=== PATIENT | male | born 1980 | race Caucasian/White ===

== ENCOUNTER 2020-04-25 00:24 | Emergency (ER) | payer SELFPAY ==
[2020-04-25] MEDS ORDERED: Diazepam 5 MG Tab PO ONE (01:08)
--- NOTE | 2020-04-25 01:47 | EDM.PDOC ---
ED HPI GENERAL MEDICAL PROBLEM - General Chief Complaint: Back Pain or Injury Stated Complaint: BACK PAIN Time Seen by Provider: 04/25/20 00:53 Source of Information: Reports: Patient History Limitations: Reports: No Limitations - History of Present Illness INITIAL COMMENTS - FREE TEXT/NARRATIVE: History of present illness: [Patient is 39-year-old male with a history of intermittent low back pain and sciatica who presents with suspected exacerbation of sciatica. He states that when he went to bed tonight he was feeling some left lower back pain radiating into his buttock. He took some ibuprofen at dinnertime. Denies any urinary or bowel incontinence. Denies IV drug use. Denies fever. Denies saddle anesthesia. Denies any chest pain or shortness of breath. No recent trauma falls or injuries. Denies any previous back surgeries. Certain positions seem to help alleviate the symptoms while others seem to exacerbate it. Patient is a hard time describing exactly what those positions are.] Review of systems: As per history of present illness and below otherwise all systems reviewed and negative. Past medical history: As per history of present illness and as reviewed below otherwise noncontributory. Surgical history: As per history of present illness and as reviewed below otherwise noncontributory. Social history: No reported history of drug or alcohol abuse. Family history: As per history of present illness and as reviewed below otherwise noncontributory. Physical exam: General: Awake, alert, mild distress, A&O X3. HEENT: Atraumatic, normocephalic, pupils reactive, negative for conjunctival pallor or scleral icterus, mucous membranes moist, throat clear, neck supple, nontender, trachea midline. Lungs: Clear to auscultation, breath sounds equal bilaterally, chest nontender. Heart: RRR, normal S1S2, no JVD. Abdomen: Soft, nondistended, nontender. Negative for masses or hepatosplenomegaly. Pelvis: Stable nontender. Genitourinary: Deferred. Rectal: Deferred. Back: Mild left lumbar paraspinal tenderness. No midline deformity or step- offs. Extremities: Atraumatic, no edema, Neurovascular unremarkable. Neuro: Motor and sensory grossly intact throughout. Exam nonfocal. Diagnostics: [] Therapeutics: [] Impression: [] Plan: [] Definitive disposition and diagnosis as appropriate pending reevaluation and review of above. left back Pain Score (Numeric/FACES): 10 - Related Data Allergies Allergy/AdvReac Type Severity Reaction Status Date / Time No Known Allergies Allergy Verified 04/25/20 00:55 Home Meds: Home Meds Pantoprazole [ProTONIX] 40 mg PO DAILY 04/25/20 [History] Sertraline [Zoloft] 50 mg PO DAILY 04/25/20 [History] Past Medical History Gastrointestinal History: Reports: GERD Other Endocrine/Metabolic History: low testosterone - Infectious Disease History Infectious Disease History: Reports: Chicken Pox Social & Family History - Family History Family Medical History: Noncontributory - Tobacco Use Smoking Status *Q: Current Every Day Smoker Years of Tobacco use: 2 Packs/Tins Daily: 1 ED ROS GENERAL - Review of Systems Review Of Systems: Comprehensive ROS is negative, except as noted in HPI. ED EXAM,LOWER BACK PAIN/INJURY - Physical Exam Exam: See Below (see h and p) Course - Vital Signs Text/Narrative:: Patient feels better after getting oral and IM medications. On reevaluation he was resting more comfortably, states the pain is not entirely gone but it has improved significantly. No other complaints or issues at this time. Nontoxic in appearance. No red flag signs or symptoms as it relates to his back pain. Nothing to suggest cauda equina syndrome. Return precautions provided otherwise encouraged to follow-up with outpatient PCP. Last Recorded V/S: Last Vital Signs Temp 36.2 C 04/25/20 00:52 Pulse 107 H 04/25/20 00:52 Resp 16 04/25/20 00:52 BP 102/73 04/25/20 00:52 Pulse Ox 95 04/25/20 00:52 - Orders/Labs/Meds Meds: Medications Discontinued Medications Generic Name Dose Route Start Last Admin Trade Name Freq PRN Reason Stop Dose Admin Diazepam 5 mg 04/25/20 01:08 04/25/20 01:15 Valium. PO 04/25/20 01:09 5 mg ONETIME ONE Administration Orphenadrine Citrate 60 mg 04/25/20 01:08 04/25/20 01:15 Norflex IM 04/25/20 01:09 60 mg ONETIME ONE Administration Departure - Departure Time of Disposition: 01:52 Disposition: Home, Self-Care 01 Condition: Good Clinical Impression: Sciatica - Discharge Information Instructions: Sciatica, [id number] Referrals: Marco A Hammond MD [Primary Care Provider] - Forms: ED Department Discharge Additional Instructions: Follow-up with PCP. Continue to use Tylenol and or Motrin as needed and directed for pain control. Return to the ED with any new or worsening symptoms. The following information is given to patients seen in the emergency department who are being discharged to home. This information is to outline your options for follow-up care. We provide all patients seen in our emergency department with a follow-up referral. The need for follow-up, as well as the timing and circumstances, are variable depending upon the specifics of your emergency department visit. If you don't have a primary care physician on staff, we will provide you with a referral. We always advise you to contact your personal physician following an emergency department visit to inform them of the circumstance of the visit and for follow-up with them and/or the need for any referrals to a consulting specialist. The emergency department will also refer you to a specialist when appropriate. This referral assures that you have the opportunity for follow-up care with a specialist. All of these measure are taken in an effort to provide you with optimal care, which includes your follow-up. Under all circumstances we always encourage you to contact your private physician who remains a resource for coordinating your care. When calling for follow-up care, please make the office aware that this follow-up is from your recent emergency room visit. If for any reason you are refused follow-up, please contact the [facility] Emergency Department at and asked to speak to the emergency department charge nurse. Sepsis Event Note (ED) - Evaluation Sepsis Screening Result: No Definite Risk - Focused Exam Vital Signs: Vital Signs Temp Pulse Resp BP Pulse Ox 04/25/20 00:52 36.2 C 107 H 16 102/73 95
== END 2020-04-25 02:05 | disposition home or self-care (01) ==
LOC: MW.ED 00:24
DX: M54.42 Lumbago with sciatica, left side (principal); K21.9 Gastro-esophageal reflux disease without esophagitis; F17.210 Nicotine dependence, cigarettes, uncomplicated; Z79.899 Other long term (current) drug therapy
CPT/HCPCS: 96372; 99283; A9270; J2360